=== PATIENT | female | born 1990 | race African-American/Black ===

== ENCOUNTER 2016-12-04 20:13 | Emergency (ER) | payer OTHER, SELFPAY | END 2016-12-04 21:27 | disposition home or self-care (01) | LOC: SCSER 20:13 | DX: J06.9 Acute upper respiratory infection, unspecified (principal); D64.9 Anemia, unspecified; F32.9 Major depressive disorder, single episode, unspecified | CPT/HCPCS: 99283 ==

== ENCOUNTER 2017-02-11 09:32 | Outpatient (CLI) | payer OTHER | END 2017-02-11 09:33 | disposition home or self-care (01) | LOC: BICULT 09:32 | PROVIDERS: ATTEND Family Medicine | DX: R10.2 Pelvic and perineal pain (principal); R93.8 Abnormal findings on diagnostic imaging of other specified body structures | CPT/HCPCS: 76856 ==

== ENCOUNTER 2017-02-18 17:29 | Emergency (ER) | payer OTHER, SELFPAY ==
[2017-02-18 18:21] LABS: Bilirubin Negative (Negative); Blood, Urine Small (Negative); Glucose, Urine (Dipstick) 100 mg/dL (Negative); Ketone, Urine Negative (Negative); Nitrite Positive (Negative); Protein, Urine (Dipstick) 30 mg/dL (Neg-Trace)
[2017-02-18 18:33] LABS: Bacteria/HPF 2+ HPF (None Seen)
[2017-02-18] MEDS ORDERED: HYDROcodone/Acetaminophen 5/325 mg Tablet ONE (18:33)
[2017-02-18] MEDS ORDERED: Lidocaine 1% PF 5 ML VIAL ONE (18:33)
[2017-02-18] MEDS ORDERED: Dexamethasone 10 MG/ML VIAL ONE (18:33)
[2017-02-18] MEDS ORDERED: cefTRIAXone\\ROCEPHIN 1 GM VIAL ONE (18:33)
== END 2017-02-18 19:24 | disposition home or self-care (01) ==
LOC: SCSER 17:29
DX: N39.0 Urinary tract infection, site not specified (principal); G89.29 Other chronic pain; M54.5 Low back pain; D50.9 Iron deficiency anemia, unspecified; F32.9 Major depressive disorder, single episode, unspecified; Z79.899 Other long term (current) drug therapy
CPT/HCPCS: 81003; 81015; 81025; 87086; 96372; J0696; J1100; J2001

== ENCOUNTER 2017-04-19 11:13 | Emergency (ER) | payer MEDICAID | END 2017-04-19 13:03 | disposition home or self-care (01) | LOC: ERS 11:13 | DX: J06.9 Acute upper respiratory infection, unspecified (principal); D50.9 Iron deficiency anemia, unspecified; F32.9 Major depressive disorder, single episode, unspecified | CPT/HCPCS: 99283 ==

== ENCOUNTER 2017-06-10 20:49 | Emergency (ER) | payer MEDICAID, SELFPAY ==
[2017-06-10] MEDS ORDERED: Ondansetron ODT 4 MG TAB ONE (21:13)
[2017-06-10] MEDS ORDERED: Ibuprofen 600 MG TAB ONE (21:13)
[2017-06-10 21:30] LABS: #Basophils 0.1 thou/uL (0.0-0.2); #Eosinphils 0.2 thou/uL (0.0-0.7); #Lymphocytes 2.4 thou/uL (1.20-3.40); #Monocytes 0.7 thou/uL (0.11-0.59); #Neutrophils 5.7 thou/uL (1.40-6.50); %Basophils 0.8 % (0.0-1.0); %Eosinophils 2.1 % (0.0-10.0); %Lymphocytes 26.3 % (21.0-51.0); %Monocytes 7.4 % (0.0-10.0); %Neutrophils 63.4 % (42.0-75.0); Hemoglobin 11.4 g/dL (12.0-16.0); Mean Corpuscular HGB CONC 32.2 g/dL (32.0-36.0); Mean Corpuscular Hemoglobin 25.1 pg (27.0-31.0); Mean Corpuscular Volume 78.2 fl (81.0-99.0); Mean Platelet Volume 7.2 fL (7.4-10.4); Platelet Count 244 thou/uL (130-400); RBC Distribution Width 12.5 % (11.5-14.5); Red Blood Cell (RBC) Count 4.52 mill/uL (4.20-5.40); White Blood Cell (WBC) Count 8.9 thou/uL (4.8-10.8)
[2017-06-10 21:35] LABS: BHCG - Serum Negative (NEGATIVE); Pregs Control Background? CLEAR/WHITE (CLR/WHITE); Pregs Control Bar Appear? YES (CONTROL BAR)
== END 2017-06-10 22:00 | disposition home or self-care (01) ==
LOC: SCSER 20:49
DX: N92.1 Excessive and frequent menstruation with irregular cycle (principal); F32.9 Major depressive disorder, single episode, unspecified
CPT/HCPCS: 84703; 85025; 99284; Q0162

== ENCOUNTER 2017-07-20 13:32 | Emergency (ER) | payer MEDICAID, SELFPAY | END 2017-07-20 13:56 | disposition home or self-care (01) | LOC: SCSER 13:32 | DX: B34.9 Viral infection, unspecified (principal); J06.9 Acute upper respiratory infection, unspecified; D50.9 Iron deficiency anemia, unspecified; F32.9 Major depressive disorder, single episode, unspecified; Z79.899 Other long term (current) drug therapy | CPT/HCPCS: 99283 ==

== ENCOUNTER 2018-04-19 20:23 | Emergency (ER) | payer SELFPAY ==
[2018-04-19] MEDS ORDERED: Acetaminophen 325 MG TAB ONE (21:32)
[2018-04-19] MEDS ORDERED: Ondansetron ODT 4 MG TAB ONE (21:32)
[2018-04-19 21:33] LABS: #Basophils 0.1 thou/uL (0.0-0.2); #Eosinphils 0.1 thou/uL (0.0-0.7); #Monocytes 0.7 thou/uL (0.11-0.59); #Neutrophils 9.8 thou/uL (1.40-6.50); %Basophils 0.7 % (0.0-1.0); %Eosinophils 0.6 % (0.0-10.0); %Lymphocytes 15.8 % (21.0-51.0); %Monocytes 5.5 % (0.0-10.0); %Neutrophils 77.4 % (42.0-75.0); Hemoglobin 10.9 g/dL (12.0-16.0); Mean Corpuscular HGB CONC 34.1 g/dL (32.0-36.0); Mean Corpuscular Hemoglobin 26.9 pg (27.0-31.0); Mean Corpuscular Volume 78.9 fL (78.0-98.0); Mean Platelet Volume 6.8 fL (7.4-10.4); Platelet Count 192 thou/uL (130-400); RBC Distribution Width 13.6 % (11.5-14.5); Red Blood Cell (RBC) Count 4.06 mill/uL (4.20-5.40); White Blood Cell (WBC) Count 12.7 thou/uL (4.8-10.8)
[2018-04-19 21:40] LABS: Anion Gap 11 mmol/L (10-20); BUN (Urea Nitrogen) 13 mg/dL (7.0-18.7); Calc. Creatinine Clearance 0 mL/min (70-130); Calcium 9.2 mg/dL (7.8-10.44); Carbon Dioxide 23 mmol/L (22-29); Chloride 107 mmol/L (98-107); Estimated GFR-MDRD Greater than 90; Glucose 81 mg/dL (70-105); Potassium 3.6 mmol/L (3.5-5.1); Sodium 137 mmol/L (136-145)
[2018-04-19 21:54] LABS: Bilirubin Negative (Negative); Blood, Urine Negative (Negative); Clarity Clear (Clear); Glucose, Urine (Dipstick) Negative (Negative); Leukocyte Negative (Negative); Nitrite Negative (Negative); Protein, Urine (Dipstick) Negative (Neg-Trace); Specific Gravity, Urine 1.025 (1.005-1.030); pH, Urine 6.5 (5.0-9.0)
--- NOTE | 2018-04-19 22:52 | ULT ---
OB ULTRASOUND: 04/19/18 HISTORY: Vaginal bleeding with . Real time imaging of the pelvis was performed transabdominally. This shows a single viable intrauteri ne in a vertex presentation. The placenta is posterior in location. heart rate is 150 beats per minute. The cervical canal length is approximately 3.7 cm. Amniotic fluid is adequate for this stage of . measurements are as follows: BPD 3.2 cm 16 weeks, 0 days Head circumference 11.9 cm 15 weeks, 6 days Abdominal circumference 9.3 cm 15 weeks, 3 days Femur length 1.8 cm 15 weeks, 3 days Neither the right or left adnexa is well visualized. IMPRESSION: 1. Single viable intrauterine in a vertex presentation. Overall measurements correspon ding to a gestational age of 15 weeks, 3 days. Estimated date of delivery 10/08/18. 2. Placenta which is posterior in location without evidence of previa. POS: [facility]
[2018-04-21 21:43] LABS: Chlamydia by PCR Not Detected (NotDetected); GC by PCR Not Detected (NotDetected)
== END 2018-04-19 23:05 | disposition home or self-care (01) ==
LOC: SCSER 20:23
DX: O26.852 Spotting complicating pregnancy, second trimester (principal); O99.89 Other specified diseases and conditions complicating pregnancy, childbirth and the puerperium; R10.30 Lower abdominal pain, unspecified; O99.342 Other mental disorders complicating pregnancy, second trimester; F32.9 Major depressive disorder, single episode, unspecified; Z3A.15 15 weeks gestation of pregnancy
CPT/HCPCS: 76856; 80048; 81003; 84702; 85025; 86900; 86901; 87480; 87491; 87510; 87591; 87660; 93976; Q0162

== ENCOUNTER 2018-06-14 20:02 | Emergency (ER) | payer OTHER ==
[2018-06-14] MEDS ORDERED: Acetaminophen 500 MG TAB ONE (20:41)
[2018-06-14 20:47] LABS: Bilirubin Negative (Negative); Blood, Urine Negative (Negative); Clarity Clear (Clear); Glucose, Urine (Dipstick) Negative (Negative); Leukocyte Negative (Negative); Nitrite Negative (Negative); Protein, Urine (Dipstick) Negative (Neg-Trace); Urobilinogen 0.2 mg/dL (0.2-1.0)
== END 2018-06-14 21:15 | disposition home or self-care (01) ==
LOC: SCSER 20:02
DX: O99.89 Other specified diseases and conditions complicating pregnancy, childbirth and the puerperium (principal); R10.2 Pelvic and perineal pain; Z3A.22 22 weeks gestation of pregnancy
CPT/HCPCS: 81003; 99283

== ENCOUNTER 2019-08-17 08:27 | Outpatient (CLI) | payer MEDICAID ==
--- NOTE | 2019-08-17 09:19 | ULT ---
Exam: Transabdominal and endovaginal pelvic ultrasound HISTORY:Abnormal uterine bleeding COMPARISON:09/02/2012 TECHNIQUE: Transabdominal and endovaginal imaging of the pelvis is performed. Ovaries are interrogate d with grayscale, color flow, Doppler imaging and spectral wave form analysis FINDINGS: Uterus: No myometrial masses. Uterus measurin.3 x 5.9 x 4.0 cm. Endometrium: Homogeneous echotexture. Endometrium diameter: 0.8 cm. . Free fluid: None Right ovary: Normal echotexture Right ovary measurement: 1.9 x 1.9 x 3.0 cm Left ovary: Not appreciated. No obvious masses or fluid in the left adnexa Ovarian Doppler: There is vascular flow to the right ovary. IMPRESSION: 1. Appropriate echotexture of the endometrium. 2. Normal echotexture and vascular flow to the right ovary. 3. Left ovary is not appreciated.
== END 2019-08-17 08:28 | disposition home or self-care (01) ==
LOC: BICULT 08:27
PROVIDERS: ATTEND Nurse Practitioner Women's Health
DX: N93.9 Abnormal uterine and vaginal bleeding, unspecified (principal)
CPT/HCPCS: 76856

== ENCOUNTER 2019-12-08 14:44 | Emergency (ER) | payer MEDICAID ==
[2019-12-08 15:26] LABS: #Basophils 0.1 thou/uL (0.0-0.2); #Eosinphils 0.1 thou/uL (0.0-0.7); #Monocytes 0.7 thou/uL (0.11-0.59); #Neutrophils 6.9 thou/uL (1.40-6.50); %Basophils 0.6 % (0.0-1.0); %Eosinophils 1.1 % (0.0-10.0); %Lymphocytes 20.7 % (21.0-51.0); %Monocytes 6.8 % (0.0-10.0); %Neutrophils 70.8 % (42.0-75.0); Hemoglobin 12.8 g/dL (12.0-16.0); Mean Corpuscular Hemoglobin 26.4 pg (27.0-31.0); Mean Corpuscular Volume 82.4 fL (78.0-98.0); Mean Platelet Volume 7.2 fL (7.4-10.4); Platelet Count 282 thou/uL (130-400); RBC Distribution Width 12.2 % (11.5-14.5); Red Blood Cell (RBC) Count 4.84 mill/uL (4.20-5.40); White Blood Cell (WBC) Count 9.7 thou/uL (4.8-10.8)
[2019-12-08 15:48] LABS: Bilirubin Negative (Negative); Blood, Urine Negative (Negative); Clarity Clear (Clear); Glucose, Urine (Dipstick) Normal (Negative); Ketone, Urine Negative (Negative); Leukocyte Negative Leu/uL (Negative); Nitrite Negative (Negative); Protein, Urine (Dipstick) Negative (Neg-Trace); Specific Gravity, Urine 1.013 (1.002-1.036); Urobilinogen Normal mg/dL (Less than 2); pH, Urine 7.5 (5.0-9.0)
[2019-12-08 15:50] LABS: ALT (SGPT) 8 U/L (8-55); AST (SGOT) 16 U/L (5-34); Albumin 4.2 g/dL (3.5-5.0); Alkaline Phosphatase 61 U/L (40-110); Anion Gap 10 mmol/L (10-20); BUN (Urea Nitrogen) 10 mg/dL (7.0-18.7); Bilirubin, Total 0.3 mg/dL (0.2-1.2); Calc. Creatinine Clearance 0 mL/min (70-130); Carbon Dioxide 28 mmol/L (22-29); Chloride 105 mmol/L (98-107); Estimated GFR-MDRD Greater than 90; Globulin 3.4 g/dL (2.4-3.5); Glucose 98 mg/dL (70-105); Protein, Total 7.6 g/dL (6.0-8.3); Sodium 139 mmol/L (136-145)
[2019-12-08 19:49] LABS: Pregnancy Test - Urine (BHCG) Negative (Negative); Pregu Control Background? CLEAR/WHITE (CLR/WHITE); Pregu Control Bar Appear? YES (CONTROL BAR); Specific Gravity 1.013 (1.002-1.036)
[2019-12-08] MEDS ORDERED: Ketorolac Tromethamine 30 MG/ML VIAL ONE ×2 (20:01→20:07)
--- NOTE | 2019-12-08 21:31 | ULT ---
PELVIC ULTRASOUND: 12/08/19 Transabdominal ultrasound of pelvis performed. INDICATIONS: Irregular menses. Uterus has a normal sonographic appearance. Endometrial stripe is normal. Tiny right ovarian cyst abdiaziz suring approximately 1.0 cm. Ovaries are otherwise unremarkable. Color Doppler and spectral analysis demonstrate blood flow to both ovaries. No free fluid. IMPRESSION: Unremarkable pelvic ultrasound. POS: [facility]
[2019-12-10 17:04] LABS: Chlamydia by PCR Not Detected (NotDetected); GC by PCR Not Detected (NotDetected)
== END 2019-12-08 22:02 | disposition home or self-care (01) ==
LOC: ERS 14:44
DX: R10.2 Pelvic and perineal pain (principal); D50.9 Iron deficiency anemia, unspecified; F32.9 Major depressive disorder, single episode, unspecified; F17.210 Nicotine dependence, cigarettes, uncomplicated; Z79.899 Other long term (current) drug therapy
CPT/HCPCS: 36415; 76856; 80053; 81003; 81025; 85025; 87480; 87491; 87510; 87591; 87660; 96372; J1885

== ENCOUNTER 2020-01-19 17:29 | Emergency (ER) | payer MEDICAID ==
[2020-01-20 20:45] LABS: SARS-CoV-2 MS2 Positive; SARS-CoV-2 N Gene Negative; SARS-CoV-2 S Gene Negative; SARS-CoV-2 by NAA Not Detected (NotDetected); SARS-CoV-2 orf1ab Negative
== END 2020-01-19 17:56 | disposition home or self-care (01) ==
LOC: ERS 17:29
DX: Z20.828 Contact with and (suspected) exposure to other viral communicable diseases (principal)
CPT/HCPCS: 87635; 99283; U0003

== ENCOUNTER 2020-04-12 12:03 | Emergency (ER) | payer MEDICAID, SELFPAY ==
[~2020-04-12 12:03] MED LIST: Iopamidol-370 76% 500 ML 1 ML ONE
[2020-04-12 13:37] LABS: #Basophils 0.1 thou/uL (0.0-0.2); #Eosinphils 0.2 thou/uL (0.0-0.7); #Lymphocytes 2.3 thou/uL (1.20-3.40); #Monocytes 0.6 thou/uL (0.11-0.59); %Basophils 0.6 % (0.0-1.0); %Eosinophils 1.7 % (0.0-10.0); %Lymphocytes 18.6 % (21.0-51.0); %Monocytes 5.2 % (0.0-10.0); %Neutrophils 73.8 % (42.0-75.0); Hemoglobin 12.3 g/dL (12.0-16.0); Mean Corpuscular HGB CONC 31.9 g/dL (32.0-36.0); Mean Corpuscular Hemoglobin 26.2 pg (27.0-31.0); Mean Corpuscular Volume 82.1 fL (78.0-98.0); Mean Platelet Volume 7.3 fL (7.4-10.4); Platelet Count 290 thou/uL (130-400); RBC Distribution Width 12.1 % (11.5-14.5); White Blood Cell (WBC) Count 12.1 thou/uL (4.8-10.8)
[2020-04-12 13:45] LABS: PTT 25.9 sec (22.9-36.1); Prothrombin Time 12.9 sec (12.0-14.7)
[2020-04-12 13:59] LABS: ALT (SGPT) 9 U/L (8-55); AST (SGOT) 13 U/L (5-34); Albumin 4.4 g/dL (3.5-5.0); Alkaline Phosphatase 53 U/L (40-110); Anion Gap 13 mmol/L (10-20); BUN (Urea Nitrogen) 13 mg/dL (7.0-18.7); Bilirubin, Total 0.6 mg/dL (0.2-1.2); Calc. Creatinine Clearance 0 mL/min (70-130); Calcium 9.2 mg/dL (7.8-10.44); Carbon Dioxide 26 mmol/L (22-29); Chloride 106 mmol/L (98-107); Globulin 3.1 g/dL (2.4-3.5); Glucose 71 mg/dL (70-105); Protein, Total 7.5 g/dL (6.0-8.3); Sodium 141 mmol/L (136-145)
[2020-04-12 14:25] LABS: BHCG - Serum Negative (NEGATIVE); Pregs Control Bar Appear? YES (CONTROL BAR)
[2020-04-12 14:26] LABS: Pregs Control Background? CLEAR/WHITE (CLR/WHITE)
[2020-04-12] MEDS ORDERED: Morphine 4 MG/ML VIAL ONE (14:30)
[2020-04-12] MEDS ORDERED: Ondansetron PF 4 MG/2 ML Vial ONE (14:30)
[2020-04-12 14:51] LABS: Bilirubin Negative (Negative); Blood, Urine 3+ (Negative); Clarity Turbid (Clear); Glucose, Urine (Dipstick) Normal (Negative); Ketone, Urine Negative (Negative); Leukocyte 75 Leu/uL (Negative); Nitrite Negative (Negative); Protein, Urine (Dipstick) 100 mg/dL (Neg-Trace); RBC/HPF Greater than 50 HPF (0-3); Specific Gravity, Urine 1.021 (1.002-1.036); Urobilinogen Normal mg/dL (Less than 2); WBC/HPF Greater than 50 HPF (0-3); pH, Urine 8.5 (5.0-9.0)
[2020-04-12 14:52] LABS: Bacteria/HPF 1+ HPF (None Seen)
--- NOTE | 2020-04-12 16:20 | CT ---
CT ABDOMEN AND PELVIS WITH IV CONTRAST: Date: 04/12/2020 HISTORY: Abdominal pain. COMPARISON: 02/16/2019. FINDINGS: The lung bases are clear. No calcified gallstones are seen. The liver, spleen, pancreas, adrenal glan ds, and left kidney are normal. Right renal cyst is stable. No free air, free fluid, or lymphadenopathy seen in the abdomen or pelvis. The small bowel loops are not abnormally dilated. A normal appearing appendix is present. Aorta is of normal caliber. Uterus is present. No acute osseous abnormalities are seen. IMPRESSION: No evidence of acute process. POS: [facility]
== END 2020-04-12 17:58 | disposition home or self-care (01) ==
LOC: ERS 12:03
DX: N39.0 Urinary tract infection, site not specified (principal); D64.9 Anemia, unspecified; Z79.899 Other long term (current) drug therapy
CPT/HCPCS: 36415; 74177; 80053; 81003; 81015; 84703; 85025; 85610; 85730; 86850; 86900; 86901; 96374; 96375; J2270; J2405; Q9967

== ENCOUNTER 2020-08-14 14:43 | Emergency (ER) | payer SELFPAY ==
[2020-08-14 15:09] LABS: #Basophils 0.1 thou/uL (0.0-0.2); #Eosinphils 0.1 thou/uL (0.0-0.7); #Lymphocytes 1.8 thou/uL (1.20-3.40); #Monocytes 0.5 thou/uL (0.11-0.59); #Neutrophils 5.8 thou/uL (1.40-6.50); %Basophils 0.6 % (0.0-1.0); %Eosinophils 1.2 % (0.0-10.0); %Lymphocytes 22.2 % (21.0-51.0); %Monocytes 5.5 % (0.0-10.0); %Neutrophils 70.4 % (42.0-75.0); Hemoglobin 11.8 g/dL (12.0-16.0); Mean Corpuscular HGB CONC 33.2 g/dL (32.0-36.0); Mean Corpuscular Hemoglobin 26.8 pg (27.0-31.0); Mean Corpuscular Volume 80.8 fL (78.0-98.0); Mean Platelet Volume 7.5 fL (7.4-10.4); Platelet Count 222 thou/uL (130-400); RBC Distribution Width 12.6 % (11.5-14.5); White Blood Cell (WBC) Count 8.2 thou/uL (4.8-10.8)
[2020-08-14 15:33] LABS: ALT (SGPT) 8 U/L (8-55); AST (SGOT) 16 U/L (5-34); Albumin 4.2 g/dL (3.5-5.0); Alkaline Phosphatase 70 U/L (40-110); Anion Gap 10 mmol/L (10-20); BUN (Urea Nitrogen) 8 mg/dL (7.0-18.7); Bilirubin, Total 0.7 mg/dL (0.2-1.2); Calc. Creatinine Clearance 0 mL/min (70-130); Carbon Dioxide 27 mmol/L (22-29); Chloride 106 mmol/L (98-107); Glucose 74 mg/dL (70-105); Potassium 3.5 mmol/L (3.5-5.1); Protein, Total 7.2 g/dL (6.0-8.3); Sodium 139 mmol/L (136-145)
[2020-08-14 16:04] LABS: Bilirubin Negative (Negative); Blood, Urine Negative (Negative); Glucose, Urine (Dipstick) Negative (Negative); Ketone, Urine Negative (Negative); Leukocyte Negative (Negative); Nitrite Negative (Negative); Protein, Urine (Dipstick) Negative (Neg-Trace); Specific Gravity, Urine 1.015 (1.005-1.030); Urobilinogen 0.2 mg/dL (Less than 2)
[2020-08-14 16:05] LABS: Clarity Clear (Clear); Pregnancy Test - Urine (BHCG) Negative (Negative); Pregu Control Background? CLEAR/WHITE (CLR/WHITE); Pregu Control Bar Appear? YES (CONTROL BAR); Specific Gravity 1.015 (1.002-1.036)
[2020-08-14 16:07] LABS: Bacteria/HPF None Seen HPF (None Seen); RBC/HPF 0-3 HPF (0-3); WBC/HPF 0-3 HPF (0-3)
[2020-08-14] MEDS ORDERED: Ketorolac Tromethamine 30 MG/ML VIAL ONE (16:29)
== END 2020-08-14 18:34 | disposition home or self-care (01) ==
LOC: ERS 14:43
DX: R10.31 Right lower quadrant pain (principal); R11.0 Nausea; F17.210 Nicotine dependence, cigarettes, uncomplicated; Z79.899 Other long term (current) drug therapy
CPT/HCPCS: 36415; 74177; 80053; 81003; 81025; 83690; 85025; 96374; J1885; Q9967

== ENCOUNTER 2020-11-14 18:13 | Emergency (ER) | payer MEDICAID, SELFPAY ==
[2020-11-14 20:31] LABS: Bacteria/HPF 4+ HPF (None Seen); Bilirubin Negative (Negative); Blood, Urine Negative (Negative); Clarity Turbid (Clear); Glucose, Urine (Dipstick) Normal (Negative); Ketone, Urine Negative (Negative); Leukocyte 75 Leu/uL (Negative); Nitrite 2+ (Negative); Protein, Urine (Dipstick) 20 mg/dL (Neg-Trace); RBC/HPF 0-3 HPF (0-3); Specific Gravity, Urine 1.023 (1.002-1.036); Urobilinogen Normal mg/dL (Less than 2); pH, Urine 6.5 (5.0-9.0)
[2020-11-14 20:32] LABS: Pregnancy Test - Urine (BHCG) POSITIVE (Negative); Pregu Control Background? CLEAR/WHITE (CLR/WHITE); Pregu Control Bar Appear? YES (CONTROL BAR); Specific Gravity 1.023 (1.002-1.036)
[2020-11-15 16:49] LABS: SARS-CoV-2 PCR by NAA DETECTED (NotDetected)
== END 2020-11-14 21:00 | disposition home or self-care (01) ==
LOC: ERS 18:13
DX: U07.1 COVID-19 (principal); N39.0 Urinary tract infection, site not specified; D64.9 Anemia, unspecified; Z33.1 Pregnant state, incidental
CPT/HCPCS: 81003; 81015; 81025; 87077; 87086; 87186; 99283; U0003; U0005

== ENCOUNTER 2021-08-27 17:02 | Emergency (ER) | payer SELFPAY ==
[2021-08-27 17:59] LABS: #Eosinphils 0.1 thou/uL (0.0-0.7); #Lymphocytes 2.3 thou/uL (1.20-3.40); #Monocytes 0.4 thou/uL (0.11-0.59); #Neutrophils 4.7 thou/uL (1.40-6.50); %Basophils 0.3 % (0.0-1.0); %Eosinophils 1.4 % (0.0-10.0); %Lymphocytes 30.3 % (21.0-51.0); %Monocytes 5.9 % (0.0-10.0); %Neutrophils 62.2 % (42.0-75.0); Hemoglobin 10.4 g/dL (12.0-16.0); Mean Corpuscular HGB CONC 31.3 g/dL (32.0-36.0); Mean Corpuscular Hemoglobin 24.7 pg (27.0-31.0); Mean Corpuscular Volume 78.9 fL (78.0-98.0); Mean Platelet Volume 8.6 fL (7.4-10.4); Platelet Count 269 thou/uL (130-400); RBC Distribution Width 19.4 % (11.5-14.5); Red Blood Cell (RBC) Count 4.22 mill/uL (4.20-5.40); White Blood Cell (WBC) Count 7.5 thou/uL (4.8-10.8)
[2021-08-27 18:08] LABS: BHCG - Serum Negative (NEGATIVE); Pregs Control Background? CLEAR/WHITE (CLR/WHITE); Pregs Control Bar Appear? YES (CONTROL BAR)
[2021-08-27 18:34] LABS: ALT (SGPT) 13 U/L (8-55); AST (SGOT) 18 U/L (5-34); Albumin 3.9 g/dL (3.5-5.0); Alkaline Phosphatase 64 U/L (40-110); Anion Gap 13 mmol/L (10-20); BUN (Urea Nitrogen) 10 mg/dL (7.0-18.7); Bilirubin, Total 0.8 mg/dL (0.2-1.2); Calc. Creatinine Clearance 0 mL/min (70-130); Calcium 9.1 mg/dL (7.8-10.44); Carbon Dioxide 26 mmol/L (22-29); Chloride 105 mmol/L (98-107); Globulin 3.2 g/dL (2.4-3.5); Glucose 75 mg/dL (70-105); Lipase 39 U/L (8-78); Potassium 3.8 mmol/L (3.5-5.1); Protein, Total 7.1 g/dL (6.0-8.3); Sodium 140 mmol/L (136-145)
[2021-08-27] MEDS ORDERED: Ondansetron ODT 4 MG TAB ONE ×2 (20:00→20:01)
[2021-08-27 21:05] LABS: Bacteria/HPF None Seen HPF (None Seen); Bilirubin Negative (Negative); Blood, Urine 2+ (Negative); Clarity Clear (Clear); Glucose, Urine (Dipstick) Normal (Negative); Ketone, Urine Negative (Negative); Leukocyte Negative Leu/uL (Negative); Nitrite Negative (Negative); Protein, Urine (Dipstick) Negative (Neg-Trace); Specific Gravity, Urine 1.007 (1.002-1.036); Squamous Epithelial 0-3 HPF (0-3); Urobilinogen Normal mg/dL (Less than 2); WBC/HPF 0-3 HPF (0-3)
== END 2021-08-27 21:58 | disposition home or self-care (01) ==
LOC: ERS 17:02
DX: O72.1 Other immediate postpartum hemorrhage (principal); D64.9 Anemia, unspecified
CPT/HCPCS: 36415; 76856; 80053; 81003; 81015; 83690; 84703; 85025; 86900; 86901; 93976; Q0162

== ENCOUNTER 2021-09-19 08:44 | Emergency (ER) | payer MEDICAID | END 2021-09-19 11:26 | disposition home or self-care (01) | LOC: ERS 08:44 | DX: J06.9 Acute upper respiratory infection, unspecified (principal); Z20.822 Contact with and (suspected) exposure to COVID-19 | CPT/HCPCS: 87804; 99284; U0003; U0005 ==

== ENCOUNTER 2022-04-11 23:18 | Emergency (ER) | payer MEDICAID ==
[2022-04-12 00:14] LABS: #Eosinphils 0.1 thou/uL (0.0-0.7); #Lymphocytes 2.5 thou/uL (1.20-3.40); #Monocytes 0.9 thou/uL (0.11-0.59); #Neutrophils 10.4 thou/uL (1.40-6.50); %Basophils 0.3 % (0.0-1.0); %Lymphocytes 18.1 % (21.0-51.0); %Monocytes 6.2 % (0.0-10.0); %Neutrophils 74.4 % (42.0-75.0); Hemoglobin 11.8 g/dL (12.0-16.0); Mean Corpuscular HGB CONC 31.7 g/dL (32.0-36.0); Mean Corpuscular Hemoglobin 25.1 pg (27.0-31.0); Mean Corpuscular Volume 79.1 fl (78.0-98.0); Mean Platelet Volume 7.6 fL (7.4-10.4); Platelet Count 279 10x3/uL (130-400); RBC Distribution Width 14.4 % (11.5-14.5); Red Blood Cell (RBC) Count 4.71 mill/uL (4.20-5.40); White Blood Cell (WBC) Count 13.9 10x3/uL (4.8-10.8)
[2022-04-12 00:34] LABS: ALT (SGPT) 13 U/L (8-55); AST (SGOT) 17 U/L (5-34); Albumin 4.5 g/dL (3.5-5.0); Alkaline Phosphatase 73 U/L (40-110); Anion Gap 12 mmol/L (10-20); BUN (Urea Nitrogen) 10 mg/dL (7.0-18.7); Bilirubin, Total 0.5 mg/dL (0.2-1.2); Calc. Creatinine Clearance 0 mL/min (70-130); Calcium 9.6 mg/dL (7.8-10.44); Carbon Dioxide 25 mmol/L (22-29); Chloride 108 mmol/L (98-107); Estimated GFR 86; Globulin 3.4 g/dL (2.4-3.5); Glucose 95 mg/dL (70-105); Protein, Total 7.9 g/dL (6.0-8.3); Sodium 141 mmol/L (136-145)
[2022-04-12 01:51] LABS: BHCG - Serum Negative (NEGATIVE); Pregs Control Background? CLEAR/WHITE (CLR/WHITE); Pregs Control Bar Appear? YES (CONTROL BAR)
[2022-04-12] MEDS ORDERED: Ketorolac Tromethamine 30 MG/ML VIAL ONE (01:54)
[2022-04-12 03:00] LABS: Bilirubin Negative (Negative); Blood, Urine Negative (Negative); Clarity Clear (Clear); Glucose, Urine (Dipstick) Normal (Negative); Ketone, Urine Negative (Negative); Leukocyte Negative Leu/uL (Negative); Nitrite Negative (Negative); Protein, Urine (Dipstick) 20 mg/dL (Neg-Trace); Specific Gravity, Urine 1.011 (1.002-1.036); Urobilinogen Normal mg/dL (Less than 2)
[2022-04-12] MEDS ORDERED: Morphine 4 MG/ML VIAL ONE (03:01)
[2022-04-12] MEDS ORDERED: Iopamidol-370 76% 500 ML 1 ML ONE (11:22)
== END 2022-04-12 04:45 | disposition home or self-care (01) ==
LOC: ERS 23:18
DX: R10.9 Unspecified abdominal pain (principal); D72.829 Elevated white blood cell count, unspecified
CPT/HCPCS: 36415; 74177; 80053; 81003; 83690; 84703; 85025; 96374; 96375; J1885; J2270; Q9967

== ENCOUNTER 2022-04-21 11:58 | Emergency (ER) | payer MEDICAID ==
[2022-04-21] MEDS ORDERED: Ibuprofen 800 MG TAB ONE (15:33)
[2022-04-21] MEDS ORDERED: Dexamethasone 4 MG TAB ONE (15:33)
[2022-04-21] MEDS ORDERED: Bicillin LA 2.4 MILL.UNITS/4 ML SYRINGE ONE (15:33)
[2022-04-21 17:01] LABS: SARS-CoV-2 NAA Rapid Test Not Detected (NotDetected)
== END 2022-04-21 16:05 | disposition home or self-care (01) ==
LOC: ERS 11:58
DX: J02.0 Streptococcal pharyngitis (principal); Z20.822 Contact with and (suspected) exposure to COVID-19
CPT/HCPCS: 87081; 87430; 96372; 99283; J0561; J8540

== ENCOUNTER 2022-07-18 10:29 | Emergency (ER) | payer MEDICAID, SELFPAY ==
[2022-07-18 11:25] LABS: #Eosinphils 0.1 thou/uL (0.0-0.7); #Monocytes 0.9 thou/uL (0.11-0.59); #Neutrophils 10.3 thou/uL (1.40-6.50); %Basophils 0.2 % (0.0-1.0); %Eosinophils 0.7 % (0.0-10.0); %Lymphocytes 11.3 % (21.0-51.0); %Neutrophils 80.5 % (42.0-75.0); Hemoglobin 10.6 g/dL (12.0-16.0); Mean Corpuscular HGB CONC 30.2 g/dL (32.0-36.0); Mean Corpuscular Hemoglobin 24.3 pg (27.0-31.0); Mean Corpuscular Volume 80.3 fl (78.0-98.0); Mean Platelet Volume 9.8 fL (7.4-10.4); Platelet Count 290 10x3/uL (130-400); RBC Distribution Width 15.1 % (11.5-14.5); Red Blood Cell (RBC) Count 4.37 mill/uL (4.20-5.40); White Blood Cell (WBC) Count 12.8 10x3/uL (4.8-10.8)
[2022-07-18 11:35] LABS: Bacteria/HPF 4+ HPF (None Seen); Bilirubin Negative (Negative); Blood, Urine 3+ (Negative); Clarity Turbid (Clear); Glucose, Urine (Dipstick) Normal (Negative); Ketone, Urine Negative (Negative); Leukocyte 500 Leu/uL (Negative); Nitrite Negative (Negative); Protein, Urine (Dipstick) 30 mg/dL (Neg-Trace); Specific Gravity, Urine 1.003 (1.002-1.036); Squamous Epithelial 0-3 HPF (0-3); Urobilinogen Normal mg/dL (Less than 2); WBC/HPF Greater than 50 HPF (0-3)
[2022-07-18 11:39] LABS: BHCG - Serum Negative (NEGATIVE); Pregs Control Background? CLEAR/WHITE (CLR/WHITE); Pregs Control Bar Appear? YES (CONTROL BAR)
[2022-07-18 11:41] LABS: ALT (SGPT) 12 U/L (8-55); AST (SGOT) 14 U/L (5-34); Alkaline Phosphatase 70 U/L (40-110); Anion Gap 10 mmol/L (10-20); BUN (Urea Nitrogen) 5 mg/dL (7.0-18.7); Bilirubin, Total 0.6 mg/dL (0.2-1.2); Calc. Creatinine Clearance 0 mL/min (70-130); Calcium 8.8 mg/dL (7.8-10.44); Carbon Dioxide 24 mmol/L (22-29); Chloride 107 mmol/L (98-107); Estimated GFR 113; Globulin 2.8 g/dL (2.4-3.5); Glucose 91 mg/dL (70-105); Lipase 14 U/L (8-78); Potassium 3.2 mmol/L (3.5-5.1); Protein, Total 6.8 g/dL (6.0-8.3); Sodium 138 mmol/L (136-145)
[2022-07-18] MEDS ORDERED: cefTRIAXone (ROCEPHIN) 1 GM VIAL ONE (12:02)
[2022-07-18] MEDS ORDERED: Ketorolac Tromethamine 30 MG/ML VIAL ONE (12:02)
[2022-07-18] MEDS ORDERED: Nitrofurantoin Macrocrystal 50 MG CAP PO SCH (12:15)
[2022-07-18] MEDS ORDERED: Acetaminophen 500 MG TAB ONE (12:51)
== END 2022-07-18 13:47 | disposition home or self-care (01) ==
LOC: ERS 10:29
DX: N10 Acute pyelonephritis (principal); D72.829 Elevated white blood cell count, unspecified; F17.210 Nicotine dependence, cigarettes, uncomplicated
CPT/HCPCS: 36415; 74176; 80053; 81003; 81015; 83690; 84703; 85025; 87077; 87086; 87186; 96365; 96366; 96375; J0696; J1885

== ENCOUNTER 2024-02-18 12:55 | Emergency (ER) | payer OTHER ==
[2024-02-18 14:19] LABS: ALT (SGPT) 5 U/L (8-55); AST (SGOT) 14 U/L (5-34); Albumin 3.5 g/dL (3.5-5.0); Alkaline Phosphatase 95 U/L (40-110); Anion Gap 17 mmol/L (10-20); BHCG - Serum Negative (NEGATIVE); BUN (Urea Nitrogen) 7 mg/dL (7.0-18.7); Bilirubin, Total 0.4 mg/dL (0.2-1.2); Calc. Creatinine Clearance 0 mL/min (70-130); Carbon Dioxide 22 mmol/L (22-29); Chloride 105 mmol/L (98-107); Estimated GFR 124; Globulin 4.2 g/dL (2.4-3.5); Glucose 86 mg/dL (70-105); Potassium 3.4 mmol/L (3.5-5.1); Pregs Control Background? CLEAR/WHITE (CLR/WHITE); Pregs Control Bar Appear? YES (CONTROL BAR); Protein, Total 7.7 g/dL (6.0-8.3); Sodium 141 mmol/L (136-145)
[2024-02-18 14:24] LABS: Anisocytosis SLIGHT = 6-15 cells HPF (0-5); Microcytosis SLIGHT = 6-15 cells HPF (0-5); Platelet Adequacy Comment Platelets Normal; Polychromasia SLIGHT = 2-3 cells HPF (0-2)
[2024-02-18 14:30] LABS: #Basophils 0.04 10x3/uL (0.0-0.2); %Basophils 0.2 % (0.0-1.0); %Eosinophils 0.2 % (0.0-10.0); %Lymphocytes 7.6 % (21.0-51.0); %Monocytes 6.1 % (0.0-10.0); %Neutrophils 85.1 % (42.0-75.0); Hematocrit 32.8 % (36.0-47.0); Hemoglobin 10.1 g/dL (12.0-16.0); Mean Corpuscular HGB CONC 30.8 g/dL (32.0-36.0); Mean Corpuscular Hemoglobin 22.5 pg (27.0-31.0); Mean Corpuscular Volume 73.2 fL (78.0-98.0); Mean Platelet Volume 9.3 fL (7.4-10.4); Platelet Count 424 10x3/uL (130-400); RBC Distribution Width 16.3 % (11.5-14.5); Red Blood Cell (RBC) Count 4.48 mill/uL (4.20-5.40)
[2024-02-18] MEDS ORDERED: Ketorolac Tromethamine 30 MG (1 mL) VIAL ONE (15:39)
[2024-02-18] MEDS ORDERED: Dexamethasone 10 MG/ML VIAL ONE (15:39)
[2024-02-18] MEDS ORDERED: Sodium Chloride 0.9% 100 ML ONE (16:37)
[2024-02-18] MEDS ORDERED: Cefepime 2 GM VIAL ONE (16:37)
[2024-02-18] MEDS ORDERED: Vancomycin (BATCH) 1.5 GM in Premix 1 BAG IVPB SCH (16:45)
== END 2024-02-18 20:13 | disposition home or self-care (01) ==
LOC: ERS 12:55
DX: A41.9 Sepsis, unspecified organism (principal); J18.9 Pneumonia, unspecified organism; J36 Peritonsillar abscess; F17.210 Nicotine dependence, cigarettes, uncomplicated; Z55.6 Problems related to health literacy
CPT/HCPCS: 36415; 70491; 71045; 80053; 83605; 84703; 85025; 87040; 87070; 87077; 96365; 96375; J0692; J1100; J1885; J3370